=== PATIENT | male | born 1965 | race Caucasian/White ===

== ENCOUNTER 2023-01-14 11:05 | Inpatient (IN) | payer OTHER ==
[~2023-01-14] VITALS: Ht 180.3 cm; Wt 106.6 kg
[2023-01-14] MEDS ORDERED: LIPITOR40 M1 PO (11:35)
[2023-01-14] MEDS ORDERED: LISINOPRIL40 MG PO (11:35)
== END 2023-01-15 14:20 | disposition designated cancer center or children's hospital (05) | DRG 282 ==
LOC: ER 11:05 → ICU-2 17:53 → ICU 17:53 → SEC-K 20:20 → ICU-2 20:56 → SEC-K 01-15 08:43 → MEDI 01-15 08:46
PROVIDERS: ADMIT Internal Medicine; ATTEND Internal Medicine
PROC: 4A033R1 Measurement of Arterial Saturation, Peripheral, Percutaneous Approach (ICD-10-PCS; principal; 2023-01-14)
PROC: B246ZZZ Ultrasonography of Right and Left Heart (ICD-10-PCS; 2023-01-14)
DX: I21.4 Non-ST elevation (NSTEMI) myocardial infarction (principal); I25.2 Old myocardial infarction; Z20.822 Contact with and (suspected) exposure to COVID-19; I11.9 Hypertensive heart disease without heart failure; E86.0 Dehydration